=== PATIENT | male | born 1970 | race Two or more races ===

== ENCOUNTER 2024-03-15 08:25 | Outpatient (AMB) | payer OTHER, SELFPAY ==
--- NOTE | 2024-03-15 08:38 | MHC.OFFWIV ---
Intake Vital Signs 03/15/24 08:39 Height 6 ft 1 in Weight 230 lb BMI 30.3 BP 110/80 Blood Pressure Location Lt brachial Position Sitting Pulse 76 Pulse Source Pulse Oximeter Temp 98.7 F Temp Source Oral Pulse Oximetry (%) 97 Oxygen Delivery Method Room Air Intake Visit Reasons: [employer] lower back pain monday Intake Note: pt is here today for lower back pain started monday Patient Tobacco Use Status: Never used Tobacco Allergies No Known Allergies Allergy (Verified 03/15/24 08:42) Do you need a note to return to daycare/school/sports/work: Yes HPI HPI Comments History of Present Illness Details 53 y/o male patient presents to walk in clinic with c/o lower back pain since Monday. Denies injury or trauma recently. 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 [facility] Medical History (Updated 03/15/24 @ 09:40 by Araceli Gonzalez NP) Low back pain Social History Patient Tobacco Use Status: Never used Tobacco Physical Exam Vital Signs: Last Vital Signs Temp 98.7 F 03/15/24 08:39 Pulse 76 03/15/24 08:39 BP 110/80 03/15/24 08:39 Pulse Ox 97 03/15/24 08:39 Oxygen Delivery Method Room Air 03/15/24 08:39 BMI result Body Mass Index 30.3 Const General: comfortable and no acute distress Nutritional Appearance: overweight Orientation/consciousness: patient oriented x3 Back/Spine/Pelvis Back: back tenderness Thoracic/Lumbar Spine: thoraco-lumbar ROM normal, thoraco-lumbar spasm, thoracic spinal tenderness and lumbar spinal tenderness Neuro General: patient oriented x3, gait normal and moves all extremities Psych Speech and movement: Normal speech and movement present Assessment & Plan Assessment & Plan (1) Low back pain: Code(s): M54.50 - Low back pain, unspecified Qualifiers: Back pain laterality: midline Chronicity: chronic Sciatica presence: without sciatica Qualified Code(s): M54.50 - Low back pain, unspecified; G89.29 - Other chronic pain Plan: - IceHot - Back brace - Rest - Ibuprofen for pain relief. - PT referral. Orders: Orders PT Evaluation and Treatment Today M54.50 - Low back pain, unspecified Medications: New lidocaine 5% leave on most painful area for up to 12 hrs 1 patch topical DAILY 30 ea 0RF PAIN M54.50 - Low back pain, unspecified ibuprofen 800 mg PO Q8H 30 tabs 0RF Back pain M54.50 - Low back pain, unspecified Coding Level of Care Code New Pt Level 3 (67618) Diagnoses Chronic midline low back pain without sciatica M54.50; G89.29 Back pain laterality: midline Chronicity: chronic Sciatica presence: without sciatica Time Spent (min) 15
[2024-03-15 08:39] VITALS: BP 110/80; PULSE 76; TEMP 37.1; O2SAT 97; BMI 30.3
== END 2024-03-15 11:07 | disposition home or self-care (01) ==
PROVIDERS: PCP Pediatrics; Visit Provider Nurse Practitioner Family
DX: M54.50 Low back pain, unspecified (principal); G89.29 Other chronic pain
CPT/HCPCS: 99203